=== PATIENT | male | born 1940 | race Caucasian/White ===

== ENCOUNTER 2018-08-10 13:47 | Emergency (ER) | payer BC ==
[~2018-08-10] VITALS: Ht 185.4 cm; Wt 88.5 kg
[2018-08-10] MEDS ORDERED: cloNIDine HCL 0.1 MG TABLET PO ONE (14:15)
[2018-08-10 14:23] LABS: BASO # 0.1 x10^3/uL (0.0-0.2); BASO % 1 % (0-3); EOS # 0.2 x10^3/uL (0.0-0.7); EOS % 4 % (0-3); HEMATOCRIT 40.7 % (39.0-53.0); HEMOGLOBIN 14.1 g/dL (13.0-17.5); LYMPH # 1.4 x10^3/uL (1.0-4.8); LYMPH % 23 % (24-48); MEAN CORPUSCULAR HEMOGLOBIN 31 pg (25-35); MEAN CORPUSCULAR HGB CONC 35 g/dL (31-37); MEAN CORPUSCULAR VOLUME 89 fL (79-100); MONO # 0.5 x10^3/uL (0.0-1.1); MONO % 8 % (0-9); NEUT % 65 % (31-73); PLATELET COUNT 185 x10^3/uL (140-400); RED BLOOD COUNT 4.57 x10^6/uL (4.30-5.70); RED CELL DISTRIBUTION WIDTH 13.4 % (11.5-14.5); WHITE BLOOD COUNT 6.2 x10^3/uL (4.0-11.0)
[2018-08-10 14:31] LABS: CALCIUM 9.2 mg/dL (8.5-10.1); CREATININE 1.2 mg/dL (0.7-1.3); GFR 58.9; POTASSIUM 3.7 mmol/L (3.5-5.1)
--- NOTE | 2018-08-10 14:35 | RAD ---
EXAM: AP View of the chest DATE: 08/10/2018 2:10 PM INDICATION: CHEST PAIN, HTN COMPARISON: No Prior FINDINGS: The heart is not enlarged. Mediastinal and hilar contours are normal. No focal parenchymal airspace opacity. Scattered calcified granulomas are seen bilaterally. No pleural effusion or pneumothorax. IMPRESSION: 1. No radiographic evidence for acute cardiopulmonary process. Electronically signed by: Dmitriy Ware MD (08/10/2018 2:30 PM) [facility]
[2018-08-10 14:37] LABS: ALBUMIN 3.8 g/dL (3.4-5.0); TOTAL BILIRUBIN 1.2 mg/dL (0.2-1.0); TOTAL PROTEIN 7.5 g/dL (6.4-8.2)
[2018-08-10 15:10] LABS: BILIRUBIN,URINE NEGATIVE (NEG); CLARITY,URINE CLOUDY; COLOR,URINE YELLOW; NITRITE,URINE NEGATIVE (NEG); PROTEIN,URINE NEGATIVE (NEG-TRACE); UROBILINOGEN,URINE 0.2 mg/dL (0.2 mg/dL)
[2018-08-10 15:16] LABS: BACTERIA,URINE 0 /HPF (0-FEW); RBC,URINE OCC /HPF (0-2); WBC,URINE 0 /HPF (0-4)
--- NOTE | 2018-08-10 15:43 | PHYS DOC ---
Past Medical History Past Medical History: Cancer, High Cholesterol, Heart Disease, Hypertension, Hypothyroid Past Surgical History: Cancer Surgery, Other Additional Past Surgical Histo: STENT PLACEMENT Alcohol Use: Occasionally Drug Use: None Adult General Chief Complaint Chief Complaint: VISION PROBLEM HPI HPI Patient is a 78 year old male who presents with headache and some blurry vision reported at his primary care provider's office. The patient had elevated blood pressure and was sent to the emergency department for cardiac workup. The patient states that he is feeling better here. His blood pressure has started to come down. He does take blood pressure medication at home and states that he has been taking all of his home medications as directed. He denies chest pain, shortness of breath or diaphoresis. Review of Systems Review of Systems Constitutional: Denies fever or chills [] Eyes: See history of present illness HENT: Denies nasal congestion or sore throat [] Respiratory: Denies cough or shortness of breath [] Cardiovascular: No additional information not addressed in HPI [] GI: Denies abdominal pain, nausea, vomiting, bloody stools or diarrhea [] : Denies dysuria or hematuria [] Musculoskeletal: Denies back pain or joint pain [] Integument: Denies rash or skin lesions [] Neurologic: See history of present illness Endocrine: Denies polyuria or polydipsia [] All other systems were reviewed and found to be within normal limits, except as documented in this note. Current Medications Current Medications Current Medications Medications (Trade) Dose Ordered Sig/Tootie Start Time Stop Time Status Last Admin Dose Admin Clonidine HCl (Catapres) 0.1 mg 1X ONCE 08/10/18 14:15 08/10/18 14:40 DC 08/10/18 14:46 0.1 MG Allergies Allergies Allergies Coded Allergies Type Severity Reaction Last Updated Verified lisinopril Allergy Unknown 08/10/18 Yes Physical Exam Physical Exam Constitutional: Well developed, well nourished, no acute distress, non-toxic appearance. [] HENT: Normocephalic, atraumatic, bilateral external ears normal, oropharynx moist, no oral exudates, nose normal. [] Eyes: PERRLA, EOMI, conjunctiva normal, no discharge. [] Neck: Normal range of motion, no tenderness, supple, no stridor. [] Cardiovascular:Heart rate regular rhythm, no murmur [] Lungs & Thorax: Bilateral breath sounds clear to auscultation [] Abdomen: Bowel sounds normal, soft, no tenderness, no masses, no pulsatile masses. [] Skin: Warm, dry, no erythema, no rash. [] Back: No tenderness, no CVA tenderness. [] Extremities: No tenderness, no cyanosis, no clubbing, ROM intact, no edema. [] Neurologic: Alert and oriented X 3, normal motor function, normal sensory function, no focal deficits noted. [] Psychologic: Affect normal, judgement normal, mood normal. [] Current Patient Data Vital Signs Vital Signs Date Time Temp Pulse Resp B/P (MAP) Pulse Ox O2 Delivery O2 Flow Rate FiO2 08/10/18 16:05 50 18 156/64 (94) 99 Room Air 08/10/18 14:00 98.3 98.3 Lab Values Laboratory Tests Test 08/10/18 14:10 08/10/18 14:56 08/10/18 15:00 White Blood Count 6.2 x10^3/uL (4.0-11.0) Red Blood Count 4.57 x10^6/uL (4.30-5.70) Hemoglobin 14.1 g/dL (13.0-17.5) Hematocrit 40.7 % (39.0-53.0) Mean Corpuscular Volume 89 fL (79-100) Mean Corpuscular Hemoglobin 31 pg (25-35) Mean Corpuscular Hemoglobin Concent 35 g/dL (31-37) Red Cell Distribution Width 13.4 % (11.5-14.5) Platelet Count 185 x10^3/uL (140-400) Neutrophils (%) (Auto) 65 % (31-73) Lymphocytes (%) (Auto) 23 % (24-48) L Monocytes (%) (Auto) 8 % (0-9) Eosinophils (%) (Auto) 4 % (0-3) H Basophils (%) (Auto) 1 % (0-3) Neutrophils # (Auto) 4.0 x10^3uL (1.8-7.7) Lymphocytes # (Auto) 1.4 x10^3/uL (1.0-4.8) Monocytes # (Auto) 0.5 x10^3/uL (0.0-1.1) Eosinophils # (Auto) 0.2 x10^3/uL (0.0-0.7) Basophils # (Auto) 0.1 x10^3/uL (0.0-0.2) Sodium Level 143 mmol/L (136-145) Potassium Level 3.7 mmol/L (3.5-5.1) Chloride Level 106 mmol/L (98-107) Carbon Dioxide Level 27 mmol/L (21-32) Anion Gap 10 (6-14) Blood Urea Nitrogen 14 mg/dL (8-26) Creatinine 1.2 mg/dL (0.7-1.3) Estimated GFR (Cockcroft-Gault) 58.9 BUN/Creatinine Ratio 12 (6-20) Glucose Level 105 mg/dL (70-99) H Calcium Level 9.2 mg/dL (8.5-10.1) Total Bilirubin 1.2 mg/dL (0.2-1.0) H Aspartate Amino Transferase (AST) 19 U/L (15-37) Alanine Aminotransferase (ALT) 28 U/L (16-63) Alkaline Phosphatase 64 U/L (46-116) Troponin I Quantitative < 0.017 ng/mL (0.000-0.055) Total Protein 7.5 g/dL (6.4-8.2) Albumin 3.8 g/dL (3.4-5.0) Albumin/Globulin Ratio 1.0 (1.0-1.7) Lactic Acid Level 0.9 mmol/L (0.4-2.0) Urine Collection Type Unknown Urine Color Yellow Urine Clarity Cloudy Urine pH 6.0 Urine Specific [place] 1.010 Urine Protein Negative mg/dL (NEG-TRACE) Urine Glucose (UA) Negative mg/dL (NEG) Urine Ketones (Stick) Negative mg/dL (NEG) Urine Blood Negative (NEG) Urine Nitrite Negative (NEG) Urine Bilirubin Negative (NEG) Urine Urobilinogen Dipstick 0.2 mg/dL (0.2 mg/dL) Urine Leukocyte Esterase Negative (NEG) Urine RBC Occ /HPF (0-2) Urine WBC 0 /HPF (0-4) Urine Bacteria 0 /HPF (0-FEW) Laboratory Tests 08/10/18 14:10 Laboratory Tests 08/10/18 14:10 EKG EKG [] Radiology/Procedures Radiology/Procedures []PATIENT: YAMILETH ROSAS LACCOUNT: [id number]#: [id number] : 1940 LOCATION: ER AGE: 78 SEX: M EXAM STATUS: PRE ER ORD. PHYSICIAN: HARSH YANG APRN REASON: hypertension PROCEDURE: CHEST AP ONLY EXAM: AP View of the chest DATE: 08/10/2018 2:10 PM INDICATION: CHEST PAIN, HTN COMPARISON: No Prior FINDINGS: The heart is not enlarged. Mediastinal and hilar contours are normal. No focal parenchymal airspace opacity. Scattered calcified granulomas are seen bilaterally. No pleural effusion or pneumothorax. IMPRESSION: 1. No radiographic evidence for acute cardiopulmonary process. Electronically signed by: Dmitriy Ware MD (08/10/2018 2:30 PM) [facility] DICTATED and SIGNED BY: DMITRIY WARE MD DATE: 08/10/18 1430 Course & Med Decision Making Course & Med Decision Making Pertinent Labs and Imaging studies reviewed. (See chart for details) []The patient's blood pressure has been resolving since he presented to the emergency department. He was given clonidine in the emergency room for his hypertension. He states this headache and blurred vision have resolved. 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 He is in agreement with this plan. Dragon Disclaimer Dragon Disclaimer This electronic medical record was generated, in whole or in part, using a voice recognition dictation system. Departure Departure Impression: Primary Impression: Hypertension Disposition: 01 HOME, SELF-CARE Condition: STABLE Referrals: UNKNOWN PCP NAME (PCP) Patient Instructions: Hypertension Additional Instructions: Continue to take her at home medications as scheduled. Keep your follow-up appointment with your primary care provider. Make an appointment with your eye doctor for a screening. If worsening return to the emergency department. HARSH YANG APRN Aug 10, 2018 15:43
--- NOTE | 2018-08-10 15:45 | EKG ---
[facility] [address] [place] [address] Test Date: 2018-08-10 Test Time: 14:30:24 Pat Name: YAMILETH ROSAS Department: Room: Gender: M Secured Entrance Monitor: : 1940 Requested By: HARSH YANG Order Number: [id number] Reading MD: Tom Hightower Measurements Intervals [place] Rate: 50 P: 171 [place]: 180 QRS: 152 QRSD: 132 T: -177 QT: 484 QTc: 444 Interpretive Statements SINUS RHYTHM ABNORMAL RIGHT AXIS DEVIATION RIGHT BUNDLE BRANCH BLOCK CONSIDER RIGHT VENTRICULAR HYPERTROPHY NONSPECIFIC ST-T WAVE CHANGES. ABNORMAL ECG RI6.01 No previous ECG available for comparison Electronically Signed On 08-11-2018 8:48:05 [employer] by Tom Hightower
[2018-08-10 16:05] VITALS: BP 156/64
== END 2018-08-10 16:00 | disposition home or self-care (01) ==
LOC: ER 13:47
DX: I10 Essential (primary) hypertension (principal); E78.00 Pure hypercholesterolemia, unspecified; I11.9 Hypertensive heart disease without heart failure; E03.9 Hypothyroidism, unspecified; Z88.8 Allergy status to other drugs, medicaments and biological substances
CPT/HCPCS: 36415; 71045; 80053; 81001; 83605; 84484; 85025; 93005; 99284

== ENCOUNTER 2018-09-12 15:50 | Emergency (ER) | payer BC ==
[~2018-09-12] VITALS: Ht 185.4 cm; Wt 88.5 kg
[2018-09-12] MEDS ORDERED: METOPROLOL TARTRATE 5 MG/5 ML VIAL. IVP ONE (16:30)
[2018-09-12 17:11] LABS: CREATININE 1.2 mg/dL (0.7-1.3); GFR 58.9; POTASSIUM 3.3 mmol/L (3.5-5.1)
[2018-09-12 17:16] LABS: ALBUMIN 3.7 g/dL (3.4-5.0); TOTAL PROTEIN 7.5 g/dL (6.4-8.2)
[2018-09-12 17:58] LABS: BASO % 1 % (0-3); EOS # 0.3 x10^3/uL (0.0-0.7); EOS % 5 % (0-3); HEMATOCRIT 38.9 % (39.0-53.0); HEMOGLOBIN 13.6 g/dL (13.0-17.5); LYMPH # 1.8 x10^3/uL (1.0-4.8); LYMPH % 29 % (24-48); MEAN CORPUSCULAR HEMOGLOBIN 31 pg (25-35); MEAN CORPUSCULAR HGB CONC 35 g/dL (31-37); MEAN CORPUSCULAR VOLUME 89 fL (79-100); MONO # 0.5 x10^3/uL (0.0-1.1); MONO % 9 % (0-9); NEUT # 3.5 x10^3uL (1.8-7.7); NEUT % 57 % (31-73); PLATELET COUNT 189 x10^3/uL (140-400); RED BLOOD COUNT 4.39 x10^6/uL (4.30-5.70); RED CELL DISTRIBUTION WIDTH 13.8 % (11.5-14.5); WHITE BLOOD COUNT 6.1 x10^3/uL (4.0-11.0)
--- NOTE | 2018-09-12 18:15 | PHYS DOC ---
Past Medical History Past Medical History: Cancer, High Cholesterol, Heart Disease, Hypertension, Hypothyroid Past Surgical History: Cancer Surgery, Other Additional Past Surgical Histo: STENT PLACEMENT Alcohol Use: Occasionally Drug Use: None Adult General Chief Complaint Chief Complaint: HEADACHE HPI HPI Patient is a 78 year old male who presents with a headache and hypertension. The patient had a similar event approximately 1 month ago. He states that his blood pressures have been stable and he is remained headache free since then. He states when he woke up today he noticed that he had hypertension and developed a headache. He has been unable to get the hypertension down. He states that he is taking his medications as directed. He denies changes in vision or gait changes. Review of Systems Review of Systems Constitutional: Denies fever or chills [] Eyes: Denies change in visual acuity, redness, or eye pain [] HENT: Denies nasal congestion or sore throat [] Respiratory: Denies cough or shortness of breath [] Cardiovascular: No additional information not addressed in HPI [] GI: Denies abdominal pain, nausea, vomiting, bloody stools or diarrhea [] : Denies dysuria or hematuria [] Musculoskeletal: Denies back pain or joint pain [] Integument: Denies rash or skin lesions [] Neurologic: See history of present illness Endocrine: Denies polyuria or polydipsia [] All other systems were reviewed and found to be within normal limits, except as documented in this note. Current Medications Current Medications Current Medications Medications (Trade) Dose Ordered Sig/Tootie Start Time Stop Time Status Last Admin Dose Admin Acetaminophen (Tylenol) 1,000 mg 1X ONCE 09/12/18 18:30 09/12/18 18:31 DC 09/12/18 19:00 1,000 MG Clonidine HCl (Catapres) 0.1 mg 1X ONCE 09/12/18 18:30 09/12/18 18:31 DC 09/12/18 19:00 0.1 MG Metoprolol Tartrate (Lopressor Vial) 5 mg 1X ONCE 09/12/18 16:30 09/12/18 16:31 DC 09/12/18 17:03 5 MG Potassium Chloride (Klor-Con) 40 meq 1X ONCE 09/12/18 18:30 09/12/18 18:31 DC 09/12/18 19:00 40 MEQ Allergies Allergies Allergies Coded Allergies Type Severity Reaction Last Updated Verified lisinopril Allergy Unknown 08/10/18 Yes Physical Exam Physical Exam Constitutional: Well developed, well nourished, no acute distress, non-toxic appearance. [] HENT: Normocephalic, atraumatic, bilateral external ears normal, oropharynx moist, no oral exudates, nose normal. [] Eyes: PERRLA, EOMI, conjunctiva normal, no discharge. [] Neck: Normal range of motion, no tenderness, supple, no stridor. [] Cardiovascular:Heart rate regular rhythm, no murmur [] Lungs & Thorax: Bilateral breath sounds clear to auscultation [] Abdomen: Bowel sounds normal, soft, no tenderness, no masses, no pulsatile masses. [] Skin: Warm, dry, no erythema, no rash. [] Back: No tenderness, no CVA tenderness. [] Extremities: No tenderness, no cyanosis, no clubbing, ROM intact, no edema. [] Neurologic: Alert and oriented X 3, normal motor function, normal sensory function, no focal deficits noted, cranial nerves II through XII are grossly intact. [] Psychologic: Affect normal, judgement normal, mood normal. [] Current Patient Data Vital Signs Vital Signs Date Time Temp Pulse Resp B/P (MAP) Pulse Ox O2 Delivery O2 Flow Rate FiO2 09/12/18 19:00 97 191/94 09/12/18 16:01 98.1 16 97 Room Air 98.1 Lab Values Laboratory Tests Test 09/12/18 16:35 09/12/18 17:52 Sodium Level 142 mmol/L (136-145) Potassium Level 3.3 mmol/L (3.5-5.1) L Chloride Level 106 mmol/L (98-107) Carbon Dioxide Level 28 mmol/L (21-32) Anion Gap 8 (6-14) Blood Urea Nitrogen 14 mg/dL (8-26) Creatinine 1.2 mg/dL (0.7-1.3) Estimated GFR (Cockcroft-Gault) 58.9 BUN/Creatinine Ratio 12 (6-20) Glucose Level 94 mg/dL (70-99) Calcium Level 9.0 mg/dL (8.5-10.1) Total Bilirubin 1.0 mg/dL (0.2-1.0) Aspartate Amino Transferase (AST) 20 U/L (15-37) Alanine Aminotransferase (ALT) 26 U/L (16-63) Alkaline Phosphatase 69 U/L (46-116) Total Protein 7.5 g/dL (6.4-8.2) Albumin 3.7 g/dL (3.4-5.0) Albumin/Globulin Ratio 1.0 (1.0-1.7) White Blood Count 6.1 x10^3/uL (4.0-11.0) Red Blood Count 4.39 x10^6/uL (4.30-5.70) Hemoglobin 13.6 g/dL (13.0-17.5) Hematocrit 38.9 % (39.0-53.0) L Mean Corpuscular Volume 89 fL (79-100) Mean Corpuscular Hemoglobin 31 pg (25-35) Mean Corpuscular Hemoglobin Concent 35 g/dL (31-37) Red Cell Distribution Width 13.8 % (11.5-14.5) Platelet Count 189 x10^3/uL (140-400) Neutrophils (%) (Auto) 57 % (31-73) Lymphocytes (%) (Auto) 29 % (24-48) Monocytes (%) (Auto) 9 % (0-9) Eosinophils (%) (Auto) 5 % (0-3) H Basophils (%) (Auto) 1 % (0-3) Neutrophils # (Auto) 3.5 x10^3uL (1.8-7.7) Lymphocytes # (Auto) 1.8 x10^3/uL (1.0-4.8) Monocytes # (Auto) 0.5 x10^3/uL (0.0-1.1) Eosinophils # (Auto) 0.3 x10^3/uL (0.0-0.7) Basophils # (Auto) 0.0 x10^3/uL (0.0-0.2) Laboratory Tests 09/12/18 17:52 Laboratory Tests 09/12/18 16:35 EKG EKG [] Radiology/Procedures Radiology/Procedures [] Course & Med Decision Making Course & Med Decision Making Pertinent Labs and Imaging studies reviewed. (See chart for details) []The patient was given 5 mg of Lopressor in the emergency department for his hypertension. This was followed by clonidine and Tylenol. The patient's headache has resolved. The patient's blood pressure has responded to the antihypertensives. Dragon Disclaimer Dragon Disclaimer This electronic medical record was generated, in whole or in part, using a voice recognition dictation system. Departure Departure Impression: Primary Impression: Hypertension Additional Impression: Headache Disposition: 01 HOME, SELF-CARE Condition: STABLE Referrals: TRENTON PULIDO MD (PCP) Patient Instructions: General Headache Without Cause, Hypertension Additional Instructions: Follow-up with your primary care provider tomorrow for further evaluation of your hypertension and headache. If worsening return to the emergency department. Continue to take your home medications as prescribed. Problem Qualifiers HARSH YANG APRN Sep 12, 2018 18:15
[2018-09-12] MEDS ORDERED: POTASSIUM CHLORIDE 20 MEQ TABLET.ER. PO ONE (18:30)
[2018-09-12] MEDS ORDERED: ACETAMINOPHEN 500 MG TABLET PO ONE (18:30)
[2018-09-12] MEDS ORDERED: cloNIDine HCL 0.1 MG TABLET PO ONE (18:30)
[2018-09-12 19:00] VITALS: BP 191/94
== END 2018-09-12 19:50 | disposition home or self-care (01) ==
LOC: ER 15:50
DX: I11.9 Hypertensive heart disease without heart failure (principal); R51 Headache; E03.9 Hypothyroidism, unspecified; E78.00 Pure hypercholesterolemia, unspecified; Z95.5 Presence of coronary angioplasty implant and graft; Z88.8 Allergy status to other drugs, medicaments and biological substances
CPT/HCPCS: 36415; 80053; 85025; 96374; 99284; J3490

== ENCOUNTER 2020-03-24 09:19 | Emergency (ER) | payer BC ==
[~2020-03-24] VITALS: Ht 185.4 cm; Wt 88.0 kg
[2020-03-24 09:55] VITALS: BP 188/74
[2020-03-24] MEDS ORDERED: AMOX1TAB61 PO (10:08)
[2020-03-24] MEDS ORDERED: TRIA15OI9 TP (10:08)
--- NOTE | 2020-03-24 10:08 | PHYS DOC ---
Past Medical History Past Medical History: Cancer, High Cholesterol, Heart Disease, Hypertension, Hypothyroid Past Surgical History: Cancer Surgery, Other Additional Past Surgical Histo: STENT PLACEMENT Smoking Status: Never Smoker Alcohol Use: Occasionally Drug Use: None General Adult EDM: Chief Complaint: EYE PROBLEMS HPI: HPI: Patient is a 79 year old male presented to ER for evaluation of 2-day history of skin lesion, itchy area on the left upper eyebrow area, patient felt like he was bitten by something 2 days ago. Patient denies any trouble breathing, no chest pain, no abdominal pain, no nausea vomiting, no throat swelling, no trouble breathing, no fever, no cough. Review of Systems: Review of Systems: Constitutional: Denies fever or chills. [] Eyes: Denies change in visual acuity. [] HENT: Denies nasal congestion or sore throat. [] Respiratory: Denies cough or shortness of breath. [] Cardiovascular: Denies chest pain or edema. [] GI: Denies abdominal pain, nausea, vomiting, bloody stools or diarrhea. [] : Denies dysuria. [] Musculoskeletal: Denies back pain or joint pain. [] Integument: POSITIVE FOR ITCHY, SKIN LESION ON LEFT UPPER EYE BROWN AREA. Neurologic: Denies headache, focal weakness or sensory changes. [] Endocrine: Denies polyuria or polydipsia. [] Lymphatic: Denies swollen glands. [] Psychiatric: Denies depression or anxiety. [] Heart Score: Risk Factors: Risk Factors: DM, Current or recent (<one month) smoker, HTN, HLP, family history of CAD, obesity. Risk Scores: Score 0 - 3: 2.5% MACE over next 6 weeks - Discharge Home Score 4 - 6: 20.3% MACE over next 6 weeks - Admit for Clinical Observation Score 7 - 10: 72.7% MACE over next 6 weeks - Early Invasive Strategies Allergies: Allergies: Allergies Coded Allergies Type Severity Reaction Last Updated Verified lisinopril Allergy Unknown 08/10/18 Yes Physical Exam: PE: Constitutional: Well developed, well nourished, no acute distress, non-toxic appearance. [] HENT: Normocephalic, atraumatic, bilateral external ears normal, oropharynx moist, no oral exudates, nose normal. [] Eyes: PERRLA, EOMI, conjunctiva normal, no discharge. [] Neck: Normal range of motion, no tenderness, supple, no stridor. [] Cardiovascular:Heart rate regular rhythm, no murmur [] Lungs & Thorax: Bilateral breath sounds clear to auscultation [] Abdomen: Bowel sounds normal, soft, no tenderness, no masses, no pulsatile masses. [] Skin: THERE IS A TENDER, SWOLLEN, ERYTHEMA AREA AT THE LEFT SUPRAORBITAL NOTCH. Back: No tenderness, no CVA tenderness. [] Extremities: No tenderness, no cyanosis, no clubbing, ROM intact, no edema. [] Neurologic: Alert and oriented X 3, normal motor function, normal sensory function, no focal deficits noted. [] Psychologic: Affect normal, judgement normal, mood normal. [] EKG: EKG: [] Radiology/Procedures: Radiology/Procedures: [] Course & Med Decision Making: Course & Med Decision Making Pertinent Labs and Imaging studies reviewed. (See chart for details) [] Dragon Disclaimer: [employer] Disclaimer: This electronic medical record was generated, in whole or in part, using a voice recognition dictation system. Departure Departure Impression: Primary Impression: Cellulitis of face Disposition: HOME, SELF-CARE Condition: STABLE Referrals: TRENTON PULIDO MD (PCP) PLEASE FOLLOW UP WITH YOUR DOCTOR IN 2 DAYS FOR REEVALUATION. Patient Instructions: Cellulitis Additional Instructions: Thank you for visiting our Emergency Department. We appreciate you trusting us with your care. If any additional problems come up don't hesitate to return to visit us. Please follow up with your primary care provider so they can plan additional care if needed and know about the problem that you had. If symptoms worsen come back to the Emergency Department. Any concerning symptoms that start such as chest pain, shortness of air, weakness or numbness on one side of the body, running high fevers or any other concerning symptoms return to the ER. Scripts Triamcinolone Acetonide (TRIAMCINOLONE ACETONIDE 0.5% OINT) 15 Gm Oint...g. 1 ELIZABETH TP BID for 7 Days, #15 GM 0 Refills apply to affected area(s) Prov: JOSHUA ACEVEDO DO 03/24/20 Amoxicillin/Potassium Clav (AUGMENTIN 875-125 TABLET) 1 Each Tablet 1 TAB PO BID for 10 Days, #20 TAB 0 Refills Prov: JOSHUA ACEVEDO DO 03/24/20 Justicifation of Admission Dx: Justifications for Admission: Justification of Admission Dx: N/A JOSHUA ACEVEDO DO Mar 24, 2020 10:08
== END 2020-03-24 10:20 | disposition home or self-care (01) ==
LOC: ER 09:19
DX: L03.211 Cellulitis of face (principal); L29.9 Pruritus, unspecified; E78.00 Pure hypercholesterolemia, unspecified; I11.9 Hypertensive heart disease without heart failure; E03.9 Hypothyroidism, unspecified; Z85.9 Personal history of malignant neoplasm, unspecified; Z98.890 Other specified postprocedural states; Z88.6 Allergy status to analgesic agent
CPT/HCPCS: 99283